=== PATIENT | female | born 1950 | race African-American/Black ===

== ENCOUNTER 2016-07-28 09:52 | Observation (INO) | payer OTHER ==
--- NOTE | ~2016-07-28 | HP ---
History And Physical [address] [place]. [address] NAME: DIONICIO KULKARNI : 52 STATUS : ADM David PAT#: [id number] AGE: 65 ADM/REG DATE : 07/28/16 MR#: [id number] REPORT SERV DATE: 07/28/16 DICTATED BY: BRETT QURESHI DATE: 07/28/16 REPORT STATUS : Draft TRANSCRIBED BY: MODL DATE: 07/28/16 DATE OF ADMISSION: 07/28/2016 HISTORY OF PRESENT ILLNESS: Ms. Dionicio Kulkarni is a 65-year-old white female, end-stage renal disease patient at [facility], diabetes mellitus, hypertension, seizure disorder, chronic anemia, chronic kidney disease, gastroesophageal reflux disease, obesity, and depression, admitted to the hospital after missing dialysis 07/26/2016, due to diarrhea at the [facility]. This morning, she was noted to be quite short of breath at [facility] and was transferred to the emergency room where she was found to have volume overload by chest x-ray and admitted to observation 23 hours for urgent hemodialysis and stabilization. She lives in a [facility] at [facility]. No fever or chills. No history of upper GI problems but did have diarrhea over the weekend preventing her from going for dialysis. Remarkably asymptomatic. Has not been in this hospital since 2006, apparently has been to [facility] since then. ALLERGIES: SHE HAS AN ALLERGY TO PENICILLIN. HOME MEDICATIONS: Otherwise are hydrocodone, Pro-Stat, aspirin, Nephro-Saba, benzonatate, Tums, fluticasone, Humalog, Imdur, lisinopril, losartan, metoprolol succinate, mirtazapine, nifedipine ER, nystatin, Protonix, Dilantin, Phenergan, ranitidine, Renvela, simvastatin, and spironolactone. FAMILY HISTORY: Noncontributory. SOCIAL HISTORY: Noncontributory. Seen on hemodialysis in the dialysis unit after being transferred here from the emergency room. PHYSICAL EXAMINATION: VITAL SIGNS: Blood pressure 118/88, heart rate of 68, earlier blood pressure was 240/80, respirations 23, afebrile. GENERAL: Alert, cooperative, no acute distress. Right IJ PermCath. HEENT: Unremarkable. LUNGS: Showed decreased breath sounds at the bases, already feeling much better and breathing better after some of ultrafiltration. CARDIOVASCULAR: Without rub, grade 2/6 systolic ejection murmur. ABDOMEN: Soft, benign, obese. EXTREMITIES: Right qqsoe-lma-cvor amputation. The left has 1+ edema and deformed Charcot deformities. NEUROLOGIC: Nonfocal and oriented x3. LABORATORY DATA: Lab shows white count of 5.1, hemoglobin 12, hematocrit 39, platelet count 160,000. INR 1.2. Sodium 140, potassium 4.8, chloride 108, CO2 28 with a BUN of 34, creatinine 7.64, blood sugar 112. Chest x-ray showed volume overload, cephalization of the History And Physical [address] [address] NAME: DIONICIO KULKARNI : 52 STATUS : ADM David PAT#: [id number] AGE: 65 ADM/REG DATE : 07/28/16 MR#: [id number] REPORT SERV DATE: 07/28/16 DICTATED BY: BRETT QURESHI DATE: 07/28/16 REPORT STATUS : Draft TRANSCRIBED BY: CHRISTOFER DATE: 07/28/16 vessels. ASSESSMENT: 1. Volume overload. Thought to be secondary to missed dialysis. I do not have any history of significant congestive heart failure. 2. Diarrhea, viral, resolved. 3. End-stage renal disease, on hemodialysis Thursday, , and Thursday at [facility]. Will dialyze today urgently for missed dialysis Thursday and again tomorrow prior to discharge. 4. Diabetes mellitus type 2. 5. Malignant hypertension. On IV hydralazine plus we will resume her home medications. Has a problem with hypotension, usually on dialysis, did not have hypotension today. 6. See past medical history. PLAN: Resume home medications and we will observe overnight. Plan to discharge in a.m. after dialysis. JUAN LUIS/CHRISTOFER Brett Qureshi M.D. / [id number] CC: Brett Qureshi M.D.
[2016-07-28] MEDS ORDERED: PROTONIX PO (09:58)
[2016-07-28] MEDS ORDERED: LOP100 PO (09:59)
[2016-07-28] MEDS ORDERED: D100 PO (09:59)
[2016-07-28] MEDS ORDERED: RENA-VITE PO (10:00)
[2016-07-28] MEDS ORDERED: ASAB PO (10:00)
[2016-07-28] MEDS ORDERED: RENVELA800 MG PO (10:00)
[2016-07-28] MEDS ORDERED: COZ50 PO (10:01)
[2016-07-28] MEDS ORDERED: ADALAT CC90 MG PO (10:01)
[2016-07-28] MEDS ORDERED: IMDUR60 PO (10:01)
[2016-07-28] MEDS ORDERED: SPIRO25 PO (10:02)
[2016-07-28] MEDS ORDERED: ZOCOR20 PO (10:02)
[2016-07-28] MEDS ORDERED: TUMSROLL PO (10:02)
[2016-07-28] MEDS ORDERED: ZANTAC 150 PO ×2 (10:02→10:07)
[2016-07-28] MEDS ORDERED: PR25 PO (10:03)
[2016-07-28 10:04] LABS: BASOPHILS 0.8 %; BASOPHILS ABSOLUTE 0.04 10/3/uL (0.0-0.16); EOSINOPHILS 8.9 %; EOSINOPHILS ABSOLUTE 0.45 10/3/uL (0.0-0.53); ER CBC TAT 0 Hrs 05 Mins; HEMOGLOBIN 12.5 g/dL (12.0-16.0); IMMATURE GRANULOCYTES 0.2 %; IMMATURE GRANULOCYTES ABSOLUTE 0.01 10/3/uL (0.0-0.11); LYMPHOCYTES 23.1 %; LYMPHOCYTES ABSOLUTE 1.17 10/3/uL (0.67-4.30); MEAN CORPUS HGB CONC 31.3 g/dL (32.0-36.0); MEAN PLATELET VOLUME 10.3 fL (9.2-13.0); MONOCYTES 5.5 %; MONOCYTES ABSOLUTE 0.28 10/3/uL (0.21-1.20); NEUTROPHILS 61.5 %; NEUTROPHILS ABSOLUTE 3.12 10/3/uL (2.02-8.40); PLATELET COUNT 160 10/3/uL (150-400); RBC DISTRIBUTION WIDTH 15.2 % (12.0-16.0); RED CELL COUNT 4.11 10/6/uL (4.0-5.6); WHITE BLOOD CELLS 5.1 10/3/uL (4.5-10.5)
[2016-07-28] MEDS ORDERED: NORCO1 TA1 PO (10:04)
[2016-07-28] MEDS ORDERED: TESSALON200 MG PO (10:04)
[2016-07-28 10:05] LABS: HEMATOCRIT 39.9 % (36.0-48.0); MANUAL DIFF NO %; MEAN CORPUSCULAR HEMOGLOB 30.4 pg (26.0-34.0); MEAN CORPUSCULAR VOLUME 97.1 fL (80-100)
[2016-07-28] MEDS ORDERED: HUMALOG SC (10:05)
[2016-07-28] MEDS ORDERED: FLONASE NAS (10:10)
[2016-07-28] MEDS ORDERED: MYCOSCROI TOP (10:13)
[2016-07-28 10:14] LABS: INTERNATIONAL NORMAL RATI 1.2 UNITS (-); PROTIME (NOT ORD) 15.2 SEC (12.0-14.5)
[2016-07-28 10:15] LABS: PARTIAL THROMBO TIME 33.4 SEC (22.5-37.2)
[2016-07-28 10:21] LABS: CHLORIDE, SERUM 108 MMOL/L (96-112); CO2 (CARBON DIOXIDE) 28 MMOL/L (24-34); GLUCOSE, SERUM 112 MG/DL (60-99); SGOT(AST) 16 U/L (5-40); SGPT(ALT) 8 U/L (5-65); SODIUM, SERUM 140 MMOL/L (135-148); TOTAL BILIRUBIN 0.4 MG/DL (0-1.2)
[2016-07-28 10:23] LABS: A/G RATIO 0.8 (0.7-1.9); ALBUMIN 3.4 G/DL (3.5-5.0); ALKALINE PHOSPHATASE 143 U/L (45-117); BUN (BLOOD UREA NITROGEN) 34 MG/DL (6-23); CALCIUM, SERUM 7.9 MG/DL (8.5-10.4); CREATININE 7.64 MG/DL (0.55-1.02); GFR AFRICAN AMERICAN 6 ML/MIN (>=60); GFR NON AFRICAN AMERICAN 5 ML/MIN (>=60); GLOBULIN 4.4 G/DL (2.5-4.1); POTASSIUM, SERUM 4.8 MMOL/L (3.5-5.3); TOTAL PROTEIN 7.8 G/DL (6.0-8.5)
[2016-07-29 09:23] LABS: BASOPHILS 1.1 %; BASOPHILS ABSOLUTE 0.05 10/3/uL (0.0-0.16); EOSINOPHILS 10.8 %; EOSINOPHILS ABSOLUTE 0.48 10/3/uL (0.0-0.53); HEMATOCRIT 39.1 % (36.0-48.0); HEMOGLOBIN 12.3 g/dL (12.0-16.0); LYMPHOCYTES 35.9 %; MEAN CORPUS HGB CONC 31.5 g/dL (32.0-36.0); MEAN CORPUSCULAR HEMOGLOB 30.3 pg (26.0-34.0); MEAN CORPUSCULAR VOLUME 96.3 fL (80-100); MEAN PLATELET VOLUME 9.9 fL (9.2-13.0); MONOCYTES 8.7 %; MONOCYTES ABSOLUTE 0.39 10/3/uL (0.21-1.20); NEUTROPHILS 43.5 %; NEUTROPHILS ABSOLUTE 1.94 10/3/uL (2.02-8.40); PLATELET COUNT 165 10/3/uL (150-400); RBC DISTRIBUTION WIDTH 15.1 % (12.0-16.0); RED CELL COUNT 4.06 10/6/uL (4.0-5.6); WHITE BLOOD CELLS 4.5 10/3/uL (4.5-10.5)
[2016-07-29 09:26] LABS: MANUAL DIFF NO %
[2016-07-29 09:41] LABS: CALCIUM, SERUM 8.3 MG/DL (8.5-10.4); CHLORIDE, SERUM 107 MMOL/L (96-112); CO2 (CARBON DIOXIDE) 26 MMOL/L (24-34); PHOSPHORUS, SERUM 3.6 MG/DL (2.5-4.5); POTASSIUM, SERUM 4.5 MMOL/L (3.5-5.3); SODIUM, SERUM 142 MMOL/L (135-148)
[2016-07-29 09:42] LABS: BUN (BLOOD UREA NITROGEN) 26 MG/DL (6-23); CREATININE 6.27 MG/DL (0.55-1.02); GFR AFRICAN AMERICAN 7 ML/MIN (>=60); GFR NON AFRICAN AMERICAN 6 ML/MIN (>=60); GLUCOSE, SERUM 88 MG/DL (60-99)
== END 2016-07-29 18:08 ==
LOC: ER 09:52 → CDU1 10:11 → CDU2 13:37
PROVIDERS: Emergency Medicine; Internal Medicine Nephrology
DX: E87.70 Fluid overload, unspecified (principal); E11.22 Type 2 diabetes mellitus with diabetic chronic kidney disease; I12.0 Hypertensive chronic kidney disease with stage 5 chronic kidney disease or end stage renal disease; G40.909 Epilepsy, unspecified, not intractable, without status epilepticus; N18.6 End stage renal disease; D63.1 Anemia in chronic kidney disease; K21.9 Gastro-esophageal reflux disease without esophagitis; F32.9 Major depressive disorder, single episode, unspecified; Z88.0 Allergy status to penicillin; Z79.4 Long term (current) use of insulin; Z79.899 Other long term (current) drug therapy
CPT/HCPCS: 71010; 80053; 80069; 82962; 83735; 85025; 85610; 85730; 93005; 96372; 96374; 96375; 96376; 99285; A9270-GY; G0257; G0378; J0360